=== PATIENT | male | born 1950 | race Caucasian/White ===

== ENCOUNTER 2016-11-28 12:48 | Emergency (ER) | payer MEDICARE ==
[2016-11-28 13:20] LABS: Band 1 % (5-11); Eosinophils 5 % (0-10); Hemoglobin 13.7 g/dL (14.0-18.0); Lymphocytes 13 % (21-51); MDiff Complete? YES; Mean Corpuscular HGB CONC 31.6 g/dL (32.0-36.0); Mean Corpuscular Volume 98.2 fl (80.0-94.0); Mean Platelet Volume 7.2 fL (7.4-10.4); Monocytes 9 % (0-10); Neutrophil 72 % (42-75); Platelet Count 212 thou/uL (130-400); RBC Distribution Width 14.8 % (11.5-14.5); Red Blood Cell (RBC) Count 4.43 mill/uL (4.70-6.10); White Blood Cell (WBC) Count 6.4 thou/uL (4.8-10.8)
[2016-11-28 13:21] LABS: INR-International Normal Ratio 1.1; PTT 24.9 SEC (22.9-36.1); Prothrombin Time 14.8 SEC (12.0-14.7)
[2016-11-28 13:29] LABS: Anion Gap 21 mmol/L (10-20); BUN (Urea Nitrogen) 65 mg/dL (8.4-25.7); Calc. Creatinine Clearance 0 mL/min (70-130); Calcium 9.2 mg/dL (7.8-10.44); Carbon Dioxide 18 mmol/L (23-31); Chloride 109 mmol/L (98-107); Estimated GFR-MDRD 9; Glucose 234 mg/dL (80-115); Sodium 142 mmol/L (136-145)
== END 2016-11-28 15:16 | disposition short-term general hospital (02) ==
LOC: BURERS 12:48
DX: I12.0 Hypertensive chronic kidney disease with stage 5 chronic kidney disease or end stage renal disease (principal); N18.6 End stage renal disease; E87.5 Hyperkalemia; E11.9 Type 2 diabetes mellitus without complications; Z99.2 Dependence on renal dialysis; Z95.0 Presence of cardiac pacemaker; Z79.82 Long term (current) use of aspirin; Z79.4 Long term (current) use of insulin; Z79.899 Other long term (current) drug therapy; Z79.01 Long term (current) use of anticoagulants
CPT/HCPCS: 36415; 80048; 85025; 85610; 85730; 93005

== ENCOUNTER 2016-12-12 09:11 | Outpatient (CLI) | payer MEDICARE ==
[2016-12-12 10:55] LABS: INR-International Normal Ratio 1.6; PTT 30.1 SEC (22.9-36.1); Prothrombin Time 19.3 SEC (12.0-14.7)
[2016-12-12 11:22] LABS: #Basophils 0.1 thou/uL (0.0-0.2); #Eosinphils 0.3 thou/uL (0.0-0.7); #Lymphocytes 0.9 thou/uL (1.20-3.40); #Monocytes 0.5 thou/uL (0.11-0.59); #Neutrophils 5.3 thou/uL (1.40-6.50); %Basophils 1.3 % (0.0-1.0); %Eosinophils 3.8 % (0.0-10.0); %Lymphocytes 12.5 % (21.0-51.0); %Monocytes 7.3 % (0.0-10.0); Hemoglobin 13.7 g/dL (14.0-18.0); Mean Corpuscular HGB CONC 31.9 g/dL (32.0-36.0); Mean Corpuscular Hemoglobin 31.2 pg (27.0-31.0); Mean Corpuscular Volume 97.9 fl (80.0-94.0); Mean Platelet Volume 6.8 fL (7.4-10.4); Platelet Count 174 thou/uL (130-400); RBC Distribution Width 15.6 % (11.5-14.5)
[2016-12-12 11:32] LABS: Hemoglobin A1c 7.8 % (4.0-6.0)
[2016-12-12 11:34] LABS: ALT (SGPT) 15 U/L (8-55); AST (SGOT) 11 U/L (5-34); Albumin 4.2 g/dL (3.4-4.8); Alkaline Phosphatase 72 U/L (40-150); Anion Gap 20 mmol/L (10-20); BUN (Urea Nitrogen) 61 mg/dL (8.4-25.7); Bilirubin, Total 0.8 mg/dL (0.2-1.2); Calc. Creatinine Clearance 0 mL/min (70-130); Calcium 8.7 mg/dL (7.8-10.44); Carbon Dioxide 23 mmol/L (23-31); Chloride 102 mmol/L (98-107); Estimated GFR-MDRD 8; Globulin 2.8 g/dL (2.4-3.5); Glucose 210 mg/dL (80-115); Potassium 5.1 mmol/L (3.5-5.1); Sodium 140 mmol/L (136-145)
== END 2016-12-12 09:12 ==
LOC: HPCALD 09:11
PROVIDERS: ATTEND Family Medicine
DX: E11.21 Type 2 diabetes mellitus with diabetic nephropathy (principal); I48.2 Chronic atrial fibrillation
CPT/HCPCS: 36415; 80053; 83036; 85025; 85610; 85730

== ENCOUNTER 2017-02-03 10:23 | Outpatient (CLI) | payer MEDICARE ==
[2017-02-03 11:39] LABS: Prothrombin Time 22.9 SEC (12.0-14.7)
[2017-02-03 12:01] LABS: ALT (SGPT) 18 U/L (8-55); AST (SGOT) 16 U/L (5-34); Albumin 4.2 g/dL (3.4-4.8); Alkaline Phosphatase 73 U/L (40-150); Bilirubin, Direct 0.4 mg/dL (0.1-0.3); Cardiac Risk 3.2 (Less than 4.5); Cholesterol 136 mg/dl (< 200 Desired); HDL Cholesterol 43 mg/dL (>60 Neg Risk); LDL Cholesterol, Calculated 79 mg/dL; Protein, Total 6.8 g/dL (5.8-8.1); Triglycerides 72 mg/dL (Less than 150)
== END 2017-02-03 10:24 | disposition home or self-care (01) ==
LOC: HPCALD 10:23
PROVIDERS: ATTEND Family Medicine
DX: E78.2 Mixed hyperlipidemia (principal); I48.2 Chronic atrial fibrillation
CPT/HCPCS: 36415; 80061; 80076; 85610

== ENCOUNTER 2017-02-14 09:23 | Emergency (ER) | payer MEDICARE ==
[2017-02-14 10:11] LABS: Anion Gap 18 mmol/L (10-20); BUN (Urea Nitrogen) 65 mg/dL (8.4-25.7); Calc. Creatinine Clearance 0 mL/min (70-130); Calcium 7.9 mg/dL (7.8-10.44); Carbon Dioxide 25 mmol/L (23-31); Chloride 103 mmol/L (98-107); Estimated GFR-MDRD 7; Glucose 215 mg/dL (80-115); Sodium 141 mmol/L (136-145)
== END 2017-02-14 10:30 | disposition home or self-care (01) ==
LOC: BURERS 09:23
DX: I12.9 Hypertensive chronic kidney disease with stage 1 through stage 4 chronic kidney disease, or unspecified chronic kidney disease (principal); N18.9 Chronic kidney disease, unspecified; E11.22 Type 2 diabetes mellitus with diabetic chronic kidney disease; Z79.84 Long term (current) use of oral hypoglycemic drugs; Z99.2 Dependence on renal dialysis; Z79.899 Other long term (current) drug therapy; Z79.82 Long term (current) use of aspirin
CPT/HCPCS: 80048; 99283

== ENCOUNTER 2017-02-16 03:44 | Emergency (ER) | payer MEDICARE ==
[2017-02-16] MEDS ORDERED: AMOXicillin 250 MG CAP ONE (04:03)
== END 2017-02-16 04:35 | disposition home or self-care (01) ==
LOC: BURERS 03:44
DX: K91.840 Postprocedural hemorrhage of a digestive system organ or structure following a digestive system procedure (principal); E11.9 Type 2 diabetes mellitus without complications; I10 Essential (primary) hypertension; Z79.82 Long term (current) use of aspirin; Z79.84 Long term (current) use of oral hypoglycemic drugs; Z79.899 Other long term (current) drug therapy
CPT/HCPCS: 99283

== ENCOUNTER 2017-04-22 04:45 | Emergency (ER) | payer MEDICARE | END 2017-04-22 05:28 | disposition home or self-care (01) | LOC: BURERS 04:45 | DX: S29.012A Strain of muscle and tendon of back wall of thorax, initial encounter (principal); E11.9 Type 2 diabetes mellitus without complications; I10 Essential (primary) hypertension; Z79.84 Long term (current) use of oral hypoglycemic drugs; Z79.82 Long term (current) use of aspirin; Z79.899 Other long term (current) drug therapy; X58.XXXA Exposure to other specified factors, initial encounter | CPT/HCPCS: 99283 ==

== ENCOUNTER 2017-05-02 16:49 | Emergency (ER) | payer MEDICARE ==
[2017-05-02] MEDS ORDERED: Diazepam 5 MG TAB ONE (17:04)
[2017-05-02] MEDS ORDERED: Ketorolac Tromethamine 60 MG/2 ML VIAL ONE (17:04)
== END 2017-05-02 17:34 | disposition home or self-care (01) ==
LOC: BURERS 16:49
DX: S29.012A Strain of muscle and tendon of back wall of thorax, initial encounter (principal); I25.2 Old myocardial infarction; I10 Essential (primary) hypertension; E11.9 Type 2 diabetes mellitus without complications; X58.XXXA Exposure to other specified factors, initial encounter
CPT/HCPCS: 96372; J1885

== ENCOUNTER 2017-12-19 13:41 | Emergency (ER) | payer MEDICARE ==
[2017-12-19 14:19] LABS: Clarity Cloudy (Clear)
[2017-12-19 14:20] LABS: Glucose, Urine (Dipstick) 100 mg/dL (Negative); Leukocyte Negative (Negative); Nitrite Negative (Negative); Protein, Urine (Dipstick) > or equal to 300 mg/dL (Neg-Trace); Specific Gravity, Urine 1.019 (1.002-1.036)
[2017-12-19 14:21] LABS: Bilirubin Moderate (Negative); Blood, Urine Trace (Negative)
[2017-12-19 14:26] LABS: Bacteria/HPF 1+ HPF (None Seen); Crystals/HPF 2+ AMORPH URATES HPF (Negative); Hyaline Casts/LPF NONE SEEN LPF (0-3 Hyaline); Other Casts/LPF None Seen LPF (0-3 Hyaline); Oval Fat Bodies/HPF None Seen HPF (None Seen); RBC/HPF 0-3 HPF (0-3); Renal Epithelial None Seen HPF (0-3); Sperm/HPF None Seen HPF (None Seen); Squamous Epithelial 0-3 HPF (0-3); Transitional Epithelial 0-3 HPF (0-3); Trichomonas/HPF None Seen HPF (None Seen); WBC/HPF 0-3 HPF (0-3); Yeast-All Forms None Seen HPF (None Seen)
[2017-12-19] MEDS ORDERED: Acetaminophen/Codeine 30-300mg Tablet ONE (15:12)
== END 2017-12-19 15:13 | disposition home or self-care (01) ==
LOC: BURERS 13:41
DX: M54.5 Low back pain (principal); E11.9 Type 2 diabetes mellitus without complications; I25.2 Old myocardial infarction; I12.9 Hypertensive chronic kidney disease with stage 1 through stage 4 chronic kidney disease, or unspecified chronic kidney disease; N18.9 Chronic kidney disease, unspecified; Z79.84 Long term (current) use of oral hypoglycemic drugs; Z79.82 Long term (current) use of aspirin; Z79.899 Other long term (current) drug therapy
CPT/HCPCS: 81003; 81015; 99283

== ENCOUNTER 2018-01-05 08:38 | Emergency (ER) | payer MEDICARE ==
[2018-01-05] MEDS ORDERED: Lidocaine 1% w/Epinephrine 1:100K 30 ML VIAL ONE (08:51)
== END 2018-01-05 09:25 | disposition home or self-care (01) ==
LOC: BURERS 08:38
DX: S51.811A Laceration without foreign body of right forearm, initial encounter (principal); E11.9 Type 2 diabetes mellitus without complications; I11.0 Hypertensive heart disease with heart failure; I50.9 Heart failure, unspecified; W22.8XXA Striking against or struck by other objects, initial encounter
CPT/HCPCS: 12001; J2001

== ENCOUNTER 2018-01-12 12:14 | Emergency (ER) | payer MEDICARE | END 2018-01-12 12:45 | disposition home or self-care (01) | LOC: BURERS 12:14 | DX: S41.111D Laceration without foreign body of right upper arm, subsequent encounter (principal); E11.9 Type 2 diabetes mellitus without complications; I11.0 Hypertensive heart disease with heart failure; I50.9 Heart failure, unspecified; I25.2 Old myocardial infarction; Z79.4 Long term (current) use of insulin ==

== ENCOUNTER 2018-03-21 09:54 | Emergency (ER) | payer MEDICARE ==
[2018-03-21] MEDS ORDERED: Acetaminophen/Codeine 30-300mg Tablet ONE (10:05)
[2018-03-21] MEDS ORDERED: Ketorolac Tromethamine 60 MG/2 ML VIAL ONE (10:05)
== END 2018-03-21 10:13 | disposition home or self-care (01) ==
LOC: BURERS 09:54
DX: S29.012A Strain of muscle and tendon of back wall of thorax, initial encounter (principal); E11.9 Type 2 diabetes mellitus without complications; I11.0 Hypertensive heart disease with heart failure; I50.9 Heart failure, unspecified; I25.2 Old myocardial infarction; X58.XXXA Exposure to other specified factors, initial encounter
CPT/HCPCS: 96372; J1885

== ENCOUNTER 2018-07-29 09:13 | Emergency (ER) | payer MEDICARE ==
[2018-07-29 09:47] LABS: #Basophils 0.1 thou/uL (0.0-0.2); #Eosinphils 0.1 thou/uL (0.0-0.7); #Lymphocytes 0.6 thou/uL (1.20-3.40); #Monocytes 1.2 thou/uL (0.11-0.59); #Neutrophils 6.5 thou/uL (1.40-6.50); %Basophils 0.9 % (0.0-1.0); %Eosinophils 1.2 % (0.0-10.0); %Lymphocytes 7.6 % (21.0-51.0); %Monocytes 13.6 % (0.0-10.0); %Neutrophils 76.6 % (42.0-75.0); Hemoglobin 14.5 g/dL (14.0-18.0); Mean Corpuscular HGB CONC 31.4 g/dL (32.0-36.0); Mean Corpuscular Hemoglobin 31.1 pg (27.0-31.0); Mean Corpuscular Volume 99.1 fL (78.0-98.0); Mean Platelet Volume 6.1 fL (7.4-10.4); Platelet Count 182 thou/uL (130-400); Red Blood Cell (RBC) Count 4.67 mill/uL (4.70-6.10); White Blood Cell (WBC) Count 8.4 thou/uL (4.8-10.8)
[2018-07-29 09:53] LABS: ALT (SGPT) 9 U/L (8-55); AST (SGOT) 13 U/L (5-34); Alkaline Phosphatase 85 U/L (40-150); Anion Gap 19 mmol/L (10-20); BUN (Urea Nitrogen) 44 mg/dL (8.4-25.7); Bilirubin, Total 1.2 mg/dL (0.2-1.2); Calc. Creatinine Clearance 0 mL/min (70-130); Calcium 9.4 mg/dL (7.8-10.44); Carbon Dioxide 26 mmol/L (23-31); Chloride 100 mmol/L (98-107); Estimated GFR-MDRD 9; Globulin 3.2 g/dL (2.4-3.5); Glucose 123 mg/dL (80-115); Potassium 4.7 mmol/L (3.5-5.1); Protein, Total 7.2 g/dL (5.8-8.1); Sodium 140 mmol/L (136-145)
[2018-07-29 10:15] LABS: CKMB 5.6 ng/mL (0-6.6)
[2018-07-29] MEDS ORDERED: Furosemide 40 MG/4 ML VIAL ONE (11:38)
[2018-07-29 12:41] LABS: Troponin I 0.443 ng/mL (< 0.028)
--- NOTE | 2018-07-29 13:24 | RAD ---
CHEST TWO VIEWS: Date: 07-29-18 Comparison: 05-09-15 FINDINGS: Cardiomegaly is about the same as before. There is no congestive change or pleural effusion at the mo ment. No focal pulmonary infiltrate was seen. An AICD is in place. IMPRESSION: Cardiomegaly but no acute findings. POS: HOME
[2018-07-29 16:07] LABS: Troponin I 0.351 ng/mL (< 0.028)
== END 2018-07-29 16:56 | disposition short-term general hospital (02) ==
LOC: BURERS 09:13
DX: J44.1 Chronic obstructive pulmonary disease with (acute) exacerbation (principal); I11.0 Hypertensive heart disease with heart failure; I50.9 Heart failure, unspecified; E11.9 Type 2 diabetes mellitus without complications; Z99.2 Dependence on renal dialysis; I25.2 Old myocardial infarction; Z79.4 Long term (current) use of insulin; Z79.899 Other long term (current) drug therapy; Z79.82 Long term (current) use of aspirin
CPT/HCPCS: 36415; 71046; 80053; 82553; 83880; 84484; 85025; 93005; 96374; J1940

== ENCOUNTER 2018-08-29 22:56 | Emergency (ER) | payer MEDICARE ==
[2018-08-29] MEDS ORDERED: Morphine 4 MG/ML VIAL ONE (23:33)
[2018-08-29 23:54] LABS: #Basophils 0.1 thou/uL (0.0-0.2); #Eosinphils 0.3 thou/uL (0.0-0.7); #Lymphocytes 0.7 thou/uL (1.20-3.40); #Monocytes 0.7 thou/uL (0.11-0.59); #Neutrophils 4.2 thou/uL (1.40-6.50); %Basophils 1.6 % (0.0-1.0); %Eosinophils 4.8 % (0.0-10.0); %Lymphocytes 11.6 % (21.0-51.0); %Monocytes 10.9 % (0.0-10.0); %Neutrophils 71.1 % (42.0-75.0); Hemoglobin 13.8 g/dL (14.0-18.0); Mean Corpuscular HGB CONC 31.5 g/dL (32.0-36.0); Mean Corpuscular Hemoglobin 31.3 pg (27.0-31.0); Mean Corpuscular Volume 99.4 fL (78.0-98.0); Mean Platelet Volume 7.6 fL (7.4-10.4); Platelet Count 167 thou/uL (130-400); RBC Distribution Width 14.2 % (11.5-14.5); Red Blood Cell (RBC) Count 4.42 mill/uL (4.70-6.10); White Blood Cell (WBC) Count 5.9 thou/uL (4.8-10.8)
[2018-08-30 00:02] LABS: ALT (SGPT) 13 U/L (8-55); AST (SGOT) 13 U/L (5-34); Albumin 4.1 g/dL (3.4-4.8); Alkaline Phosphatase 105 U/L (40-150); Anion Gap 21 mmol/L (10-20); BUN (Urea Nitrogen) 98 mg/dL (8.4-25.7); Bilirubin, Total 0.6 mg/dL (0.2-1.2); Calc. Creatinine Clearance 0 mL/min (70-130); Calcium 8.5 mg/dL (7.8-10.44); Carbon Dioxide 19 mmol/L (23-31); Chloride 104 mmol/L (98-107); Estimated GFR-MDRD 5; Globulin 2.7 g/dL (2.4-3.5); Glucose 195 mg/dL (80-115); Potassium 5.4 mmol/L (3.5-5.1); Protein, Total 6.8 g/dL (5.8-8.1); Sodium 139 mmol/L (136-145)
--- NOTE | 2018-08-30 08:27 | CT ---
PRELIMINARY REPORT/[facility]/EMERGENTY AFTER-HOURS PROCEDURE CT Abdomen and Pelvis With Contrast EXAM DATE/TIME: 08/29/2018 11:36 PM CLINICAL HISTORY: 67 years old, male; Pain; Abdominal pain; Generalized; Patient HX: Rlq pain PT on dialisis for renal failure TECHNIQUE: Axial computed tomography images of the abdomen and pelvis with intravenous contrast. All CT scans at this facility use at least one of these dose optimization techniques: automated expos ure control; mA and/or kV adjustment per patient size (includes targeted exams where dose is matched to clinical indication); or iterative reconstruction. CONTRAST: Contrast Material: 95 ml of ISOVIEW; Contrast Route: LF HAND 20 GA COMPARISON: No relevant prior studies available. FINDINGS: Lower thorax: Invisible cardiomegaly. Cardiac device in place. ABDOMEN: Liver: Normal. No mass. Gallbladder and bile ducts: Pericholecystic inflammation compatible with cholecystitis. Pancreas: Normal. No ductal dilation. Spleen: Normal. No splenomegaly. Adrenals: Normal. No mass. Kidneys and ureters: Hypoattenuating 2.3 cm cystic left renal lesion does not meet strict CT criteria for a cyst and is indeterminate, potentially a hyperdense cyst. Mild right-sided hydroureteronephros is without obstructing urolithiasis. Nonobstructive nephrolithiasis right kidney. Stomach and bowel: No bowel wall thickening or intestinal obstruction. Appendix: No evidence of appendicitis. PELVIS: Bladder: Inflammatory thickening of the wall of the urinary bladder consistent with cystitis. Reproductive: Unremarkable as visualized. ABDOMEN and PELVIS: Intraperitoneal space: Trace ascites. Bones/joints: No acute fracture. No dislocation. Soft tissues: Unremarkable. Vasculature: Normal. No abdominal aortic aneurysm. Lymph nodes: Normal. No enlarged lymph nodes. IMPRESSION: 1. Cystitis. 2. Pericholecystic inflammation compatible with cholecystitis. 3. Mild right-sided hydroureteronephrosis without obstructing urolithiasis. 4. Trace ascites. Thank you for allowing us to participate in the care of your patient. Dictated and Authenticated by: Eduin Santillan MD 08/30/2018 12:04 AM Central Time ([place] & [place]) FINAL REPORT CT ABDOMEN AND PELVIS WITH CONTRAST: DATE: 08/29/2018. FINDINGS: I am told that the patient has known renal failure but is on dialysis, thus contrast was used. Axial slices were acquired followed by coronal and sagittal reconstructions. Comparison is made with a study. Lung bases show dependent atelectasis and perhaps a little scarring. There are no large effusions. The liver, spleen, and pancreas showed no acute findings. The gallbladder wall may be slightly thick ened. This would be best assessed by ultrasound no gross stones were identified. The adrenal glands and aorta were unremarkable. Mild to moderate right hydronephrosis is present. There are some avery l calcifications that appear to be nonobstructing stones in this kidney. No ureteral calculi were ap preciated. There is a rounded exophytic mass attached to the lower pole of the left kidney that mayito ures about 2.5 cm in size. Central density is generally in the 30s so it does not meet the criteria of a simple cyst, though it could be a hemorrhagic cyst. It was not present on the 2011 scan. Ultra sound would be confirmatory. The bowel shows no distention or inflammatory change around it. There is no substantial amount of fr ee fluid in the abdomen. A few areas one might wonder about a trace of fluid but certainly in no sig nificant amounts. No free air is seen. CT of the pelvis shows no pelvic masses or free fluid. The bladder wall seems thick which could sign zhane cystitis, but knowing the patient has renal failure, it also could be due to its being chronicall y collapsed. Incidentally noted is a smooth ovoid soft tissue mass in the right paraspinal region at approximately L1. It was present on the 2011 scan but has increased in size slightly over the interval. Today it measures about 11 x 6.5 x 4 cm. It is smooth and homogeneous. IMPRESSION: 1. Possible gallbladder wall thickening. Consider followup ultrasound. 2. Right hydronephrosis and hydroureter. Nonobstructing stones in the right kidney. 3. Small exophytic mass attached to the lower pole of the left kidney. Does not meet criteria for a simple cyst but could be a hemorrhagic cyst. Not present in 2011. 4. Thickening of the urinary bladder wall which I suspect is chronic in this patient. Report in agreement with preliminary reading by [email or web address]. POS: HOME
== END 2018-08-30 00:32 | disposition short-term general hospital (02) ==
LOC: BURERS 22:56
DX: K81.0 Acute cholecystitis (principal); E11.9 Type 2 diabetes mellitus without complications; I11.0 Hypertensive heart disease with heart failure; I50.9 Heart failure, unspecified; J44.9 Chronic obstructive pulmonary disease, unspecified; E78.00 Pure hypercholesterolemia, unspecified; Z79.899 Other long term (current) drug therapy; Z79.4 Long term (current) use of insulin; Z79.82 Long term (current) use of aspirin
CPT/HCPCS: 74177; 80053; 83605; 83690; 85025; 96374; J2270

== ENCOUNTER 2018-12-09 15:00 | Emergency (ER) | payer MEDICARE | END 2018-12-09 15:57 | disposition home or self-care (01) | LOC: BURERS 15:00 | DX: T82.838A Hemorrhage due to vascular prosthetic devices, implants and grafts, initial encounter (principal); E11.9 Type 2 diabetes mellitus without complications; Z79.4 Long term (current) use of insulin; I11.0 Hypertensive heart disease with heart failure; I50.9 Heart failure, unspecified; I25.2 Old myocardial infarction; E78.00 Pure hypercholesterolemia, unspecified; J44.9 Chronic obstructive pulmonary disease, unspecified; Z79.899 Other long term (current) drug therapy; Z79.01 Long term (current) use of anticoagulants; Z79.82 Long term (current) use of aspirin | CPT/HCPCS: 99283 ==

== ENCOUNTER 2019-01-06 11:38 | Emergency (ER) | payer MEDICARE ==
[2019-01-06] MEDS ORDERED: Ondansetron PF 4 MG/2 ML Vial ONE (12:10)
[2019-01-06 12:21] LABS: #Eosinphils 0.2 thou/uL (0.0-0.7); #Lymphocytes 0.7 thou/uL (1.20-3.40); #Monocytes 0.6 thou/uL (0.11-0.59); #Neutrophils 4.1 thou/uL (1.40-6.50); %Basophils 0.9 % (0.0-1.0); %Eosinophils 4.2 % (0.0-10.0); %Lymphocytes 11.5 % (21.0-51.0); %Monocytes 11.4 % (0.0-10.0); %Neutrophils 72.1 % (42.0-75.0); Hemoglobin 14.4 g/dL (14.0-18.0); Mean Corpuscular HGB CONC 30.1 g/dL (32.0-36.0); Mean Corpuscular Hemoglobin 30.8 pg (27.0-31.0); Mean Platelet Volume 5.4 fL (7.4-10.4); Platelet Count 184 thou/uL (130-400); RBC Distribution Width 15.3 % (11.5-14.5); White Blood Cell (WBC) Count 5.6 thou/uL (4.8-10.8)
[2019-01-06 12:28] LABS: Prothrombin Time 46.3 SEC (12.0-14.7)
[2019-01-06 12:29] LABS: INR-International Normal Ratio 5.1
[2019-01-06 12:33] LABS: ALT (SGPT) 15 U/L (8-55); AST (SGOT) 18 U/L (5-34); Albumin 4.4 g/dL (3.4-4.8); Alkaline Phosphatase 85 U/L (40-150); Anion Gap 19 mmol/L (10-20); BUN (Urea Nitrogen) 39 mg/dL (8.4-25.7); Bilirubin, Total 0.7 mg/dL (0.2-1.2); Calc. Creatinine Clearance 0 mL/min (70-130); Calcium 8.9 mg/dL (7.8-10.44); Carbon Dioxide 25 mmol/L (23-31); Chloride 102 mmol/L (98-107); Estimated GFR-MDRD 8; Glucose 84 mg/dL (80-115); Potassium 5.1 mmol/L (3.5-5.1); Protein, Total 7.4 g/dL (5.8-8.1); Sodium 141 mmol/L (136-145)
--- NOTE | 2019-01-06 12:43 | CT ---
CT ABDOMEN AND PELVIS WITHOUT CONTRAST: Date: 01/06/[address] of the abdomen and pelvis was done following trauma. The patient presents with lower abdomi nal pain. Axial slices were acquired, followed by coronal reconstructions. FINDINGS: The lung bases are clear, except for some minor dependent atelectasis. The heart is enlarged. AICD is in place. Dense coronary artery calcifications are evident. The liver, spleen, pancreas, adrenal glands, and aorta show no acute findings within the limitations of a noncontrast study. No suspicion of laceration or hematoma of any major organ. The gallbladder is slightly generous in size, but still within normal limits at a 8.5 cm in length. No stones or wall t hickening could be seen. The kidneys are small and atrophic, as expected given the history of chronic renal disease. No renal masses or cysts apparent. The bowel shows no distention, wall thickening, or other acute change. No free air or free fluid evid ent in the abdomen. The muscles of the abdominal wall show no evidence of hematoma. CT of the pelvis showed no pelvic masses, fluid collections, or inflammatory changes. The bony pelvis appears intact. Some degenerative changes are noted throughout the lumbar spine. IMPRESSION: No acute intra-abdominal findings. POS: HOME
[2019-01-06 12:52] LABS: CKMB 4.9 ng/mL (0-6.6)
[2019-01-06 13:47] LABS: Troponin I 0.139 ng/mL (< 0.028)
== END 2019-01-06 14:08 | disposition home or self-care (01) ==
LOC: BURERS 11:38
DX: S30.1XXA Contusion of abdominal wall, initial encounter (principal); E11.9 Type 2 diabetes mellitus without complications; I11.0 Hypertensive heart disease with heart failure; I50.9 Heart failure, unspecified; I25.2 Old myocardial infarction; J44.9 Chronic obstructive pulmonary disease, unspecified; E78.00 Pure hypercholesterolemia, unspecified; Z79.82 Long term (current) use of aspirin; Z79.4 Long term (current) use of insulin; Z79.899 Other long term (current) drug therapy; W19.XXXA Unspecified fall, initial encounter
CPT/HCPCS: 74176; 80053; 82553; 84484; 85025; 85610; 93005; 94760; 96374; J2405

== ENCOUNTER 2019-01-23 22:58 | Emergency (ER) | payer MEDICARE ==
[2019-01-23] MEDS ORDERED: Acetaminophen/Codeine 30-300mg Tablet ONE (23:17)
[2019-01-23] MEDS ORDERED: Ketorolac Tromethamine 30 MG/ML VIAL ONE (23:17)
[2019-01-23 23:21] LABS: Clarity Cloudy (Clear)
[2019-01-23 23:22] LABS: Bilirubin Small (Negative); Blood, Urine Moderate (Negative); Glucose, Urine (Dipstick) Negative (Negative); Leukocyte Small (Negative); Nitrite Negative (Negative); Protein, Urine (Dipstick) > or equal to 300 mg/dL (Neg-Trace); Urobilinogen 0.2 mg/dL (Less than 2)
[2019-01-23 23:31] LABS: Bacteria/HPF Rare-Few HPF (None Seen); Squamous Epithelial 0-3 HPF (0-3)
== END 2019-01-23 23:27 | disposition home or self-care (01) ==
LOC: BURERS 22:58
DX: S29.012A Strain of muscle and tendon of back wall of thorax, initial encounter (principal); I13.2 Hypertensive heart and chronic kidney disease with heart failure and with stage 5 chronic kidney disease, or end stage renal disease; I50.9 Heart failure, unspecified; N18.6 End stage renal disease; E11.22 Type 2 diabetes mellitus with diabetic chronic kidney disease; I25.2 Old myocardial infarction; J44.9 Chronic obstructive pulmonary disease, unspecified; E78.00 Pure hypercholesterolemia, unspecified; Z99.2 Dependence on renal dialysis; Z79.4 Long term (current) use of insulin; X58.XXXA Exposure to other specified factors, initial encounter; Z79.01 Long term (current) use of anticoagulants; Z79.82 Long term (current) use of aspirin; Z79.899 Other long term (current) drug therapy
CPT/HCPCS: 81003; 81015; 87086; 96372; 99283; J1885

== ENCOUNTER 2019-02-05 08:41 | Emergency (ER) | payer MEDICARE ==
[2019-02-05] MEDS ORDERED: Ondansetron PF 4 MG/2 ML Vial ONE (09:18)
[2019-02-05 09:33] LABS: INR-International Normal Ratio 2.9; PTT 48.3 SEC (22.9-36.1); Prothrombin Time 31.3 SEC (12.0-14.7)
[2019-02-05 09:34] LABS: ALT (SGPT) 18 U/L (8-55); AST (SGOT) 24 U/L (5-34); Albumin 4.1 g/dL (3.4-4.8); Alkaline Phosphatase 92 U/L (40-150); Anion Gap 17 mmol/L (10-20); BUN (Urea Nitrogen) 31 mg/dL (8.4-25.7); Calc. Creatinine Clearance 0 mL/min (70-130); Calcium 9.1 mg/dL (7.8-10.44); Carbon Dioxide 28 mmol/L (23-31); Chloride 97 mmol/L (98-107); Estimated GFR-MDRD 9; Globulin 3.2 g/dL (2.4-3.5); Glucose 103 mg/dL (80-115); Lipase 40 U/L (8-78); Potassium 4.2 mmol/L (3.5-5.1); Protein, Total 7.3 g/dL (5.8-8.1); Sodium 138 mmol/L (136-145)
[2019-02-05 09:39] LABS: Hemoglobin 14.4 g/dL (14.0-18.0); Mean Corpuscular HGB CONC 30.6 g/dL (32.0-36.0); Mean Corpuscular Hemoglobin 30.4 pg (27.0-31.0); Mean Corpuscular Volume 99.5 fL (78.0-98.0); RBC Distribution Width 14.5 % (11.5-14.5); Red Blood Cell (RBC) Count 4.74 mill/uL (4.70-6.10); White Blood Cell (WBC) Count 6.2 thou/uL (4.8-10.8)
[2019-02-05 09:40] LABS: #Basophils 0.1 thou/uL (0.0-0.2); #Eosinphils 0.1 thou/uL (0.0-0.7); #Monocytes 0.8 thou/uL (0.11-0.59); #Neutrophils 4.8 thou/uL (1.40-6.50); %Basophils 1.5 % (0.0-1.0); %Eosinophils 0.8 % (0.0-10.0); %Lymphocytes 7.6 % (21.0-51.0); %Monocytes 12.8 % (0.0-10.0); %Neutrophils 77.3 % (42.0-75.0); MDiff Complete? YES; Manual Diff?? NO; Mean Platelet Volume 6.4 fL (7.4-10.4); Platelet Count 174 thou/uL (130-400)
[2019-02-05] MEDS ORDERED: Piperacillin/Tazobactam 4.5 GM VIAL ONE (09:46)
[2019-02-05] MEDS ORDERED: Sodium Chloride 0.9% 0 ML ONE (09:46)
[2019-02-05 09:49] LABS: Bilirubin Small (Negative); Blood, Urine Large (Negative); Glucose, Urine (Dipstick) 100 mg/dL (Negative); Leukocyte Trace (Negative); Nitrite Negative (Negative); Protein, Urine (Dipstick) > or equal to 300 mg/dL (Neg-Trace)
[2019-02-05 09:50] LABS: CKMB 2.7 ng/mL (0-6.6)
[2019-02-05 09:57] LABS: Bacteria/HPF 1+ HPF (None Seen); Clarity Cloudy (Clear); RBC/HPF Greater than 50 HPF (0-3)
--- NOTE | 2019-02-05 10:37 | CT ---
CT ABDOMEN AND PELVIS WITHOUT CONTRAST: Date: 02/05/19 Comparison is made with the prior study of 01/06/19. FINDINGS: The lung bases are clear except for some dependent atelectasis. The main pulmonary artery is quite la rge, measuring 5.2 cm in diameter. There is dense calcification of the coronary arteries, particularl y in the left coronary system. The heart is enlarged, but no pericardial effusion is seen. The liver, spleen, pancreas, adrenal glands, and abdominal aorta show no acute findings. The gallblad dez is about the same size as it was on the 01/06/19 study. The verma do not seem unduly thick to me and I do not see any stones or streaking around the gallbladder. Ultrasound might give a better look of it if symptoms localize there. The kidneys are quite small. I understand that the patient is on dialysis. There is at least one smal l cyst in the left kidney. I see no hydronephrosis. A few calcifications are present in the right kid laquita. The bowel shows no distention or wall thickening. A few scattered diverticula are present without sig ns of diverticulitis. No free air or free fluid seen. CT of the pelvis shows no pelvic masses, fluid collections, or inflammatory changes. The bladder is d ecompressed so cannot be evaluated. An incidental finding is a large ovoid mass in the right paraspinal soft tissues posteriorly. This santoro s been present on numerous prior scans and has not changed. IMPRESSION: 1. No acute abdominal or pelvic findings. 2. Very large main pulmonary artery. 3. Dense coronary arteriosclerosis. 4. Ovoid smooth soft tissue mass in the back on the paraspinous region on the right, longstanding an d unchanged. POS: HOME
--- NOTE | 2019-02-05 10:49 | RAD ---
PORTABLE CHEST: Date: 02/05/19 An AP portable film at 0909 hours is compared with a 09/10/18 study done at [facility]. The heart is quite large, as usual. Nevertheless, there are no congestive findings or pleural effusio ns of concern. Cardiac pacer is in place. I cannot appreciate a focal pneumonia. Recent CT showed josefina e basilar streaking, more so on the right than the left, but it really had the appearance of either f ibrosis or dependent atelectasis. IMPRESSION: Cardiomegaly, but no acute findings. POS: HOME
[2019-02-05] MEDS ORDERED: Iopamidol 370 76% 100 ML VIAL ONE (11:07)
== END 2019-02-05 10:52 | disposition short-term general hospital (02) ==
LOC: BURERS 08:41
DX: R10.84 Generalized abdominal pain (principal); R07.9 Chest pain, unspecified; R79.89 Other specified abnormal findings of blood chemistry; R50.9 Fever, unspecified; I13.2 Hypertensive heart and chronic kidney disease with heart failure and with stage 5 chronic kidney disease, or end stage renal disease; E11.22 Type 2 diabetes mellitus with diabetic chronic kidney disease; N18.6 End stage renal disease; I50.9 Heart failure, unspecified; J44.9 Chronic obstructive pulmonary disease, unspecified; E78.00 Pure hypercholesterolemia, unspecified; Z79.82 Long term (current) use of aspirin; Z79.899 Other long term (current) drug therapy; Z79.4 Long term (current) use of insulin; Z79.01 Long term (current) use of anticoagulants
CPT/HCPCS: 36415; 36416; 51701; 71045; 74177; 80053; 81003; 81015; 82553; 83605; 83690; 84484; 85025; 85610; 85730; 87040; 87077; 87149; 87186; 93005; 94760; 96365; 96375; J2405; J2543; J3490; Q9967

== ENCOUNTER 2019-06-23 17:08 | Emergency (ER) | payer MEDICARE ==
[2019-06-23 17:53] LABS: PTT 71.3 SEC (22.9-36.1)
[2019-06-23 17:57] LABS: Prothrombin Time 70.8 SEC (12.0-14.7)
[2019-06-23 17:59] LABS: INR-International Normal Ratio 8.7
[2019-06-23 18:31] LABS: Bilirubin Large (Negative); Blood, Urine Large (Negative); Clarity Turbid (Clear); Leukocyte Large (Negative); Nitrite Negative (Negative)
[2019-06-23 18:33] LABS: Glucose, Urine (Dipstick) Unable to Interpret mg/dL (Negative); Protein, Urine (Dipstick) Unable to Interpret mg/dL (Neg-Trace)
[2019-06-23 18:40] LABS: Bacteria/HPF 2+ HPF (None Seen); RBC/HPF Greater than 50 HPF (0-3); Squamous Epithelial 0-3 HPF (0-3); WBC/HPF 0-3 HPF (0-3)
== END 2019-06-23 18:33 | disposition home or self-care (01) ==
LOC: BURERS 17:08
DX: R31.0 Gross hematuria (principal); R79.89 Other specified abnormal findings of blood chemistry; I11.0 Hypertensive heart disease with heart failure; I50.9 Heart failure, unspecified; E11.9 Type 2 diabetes mellitus without complications; E78.00 Pure hypercholesterolemia, unspecified; I25.2 Old myocardial infarction; J44.9 Chronic obstructive pulmonary disease, unspecified; Z79.899 Other long term (current) drug therapy; Z79.01 Long term (current) use of anticoagulants; Z79.82 Long term (current) use of aspirin
CPT/HCPCS: 36415; 81003; 81015; 85610; 85730; 99283

== ENCOUNTER 2019-12-11 15:03 | Emergency (ER) | payer MEDICARE ==
[2019-12-11] MEDS ORDERED: Morphine 4 MG/ML VIAL ONE (15:19)
[2019-12-11] MEDS ORDERED: Cyclobenzaprine 10 MG TAB ONE (15:20)
== END 2019-12-11 15:23 | disposition home or self-care (01) ==
LOC: BURERS 15:03
DX: S29.012A Strain of muscle and tendon of back wall of thorax, initial encounter (principal); I13.0 Hypertensive heart and chronic kidney disease with heart failure and stage 1 through stage 4 chronic kidney disease, or unspecified chronic kidney disease; N18.9 Chronic kidney disease, unspecified; I50.9 Heart failure, unspecified; E11.22 Type 2 diabetes mellitus with diabetic chronic kidney disease; I25.2 Old myocardial infarction; J44.9 Chronic obstructive pulmonary disease, unspecified; E78.00 Pure hypercholesterolemia, unspecified; Z79.899 Other long term (current) drug therapy; Z79.4 Long term (current) use of insulin; Z99.2 Dependence on renal dialysis; Z79.82 Long term (current) use of aspirin; Z79.01 Long term (current) use of anticoagulants; X50.0XXA Overexertion from strenuous movement or load, initial encounter
CPT/HCPCS: 96372; 99283; J2270

== ENCOUNTER 2020-04-21 09:12 | Emergency (ER) | payer MEDICARE ==
[2020-04-21 09:39] LABS: #Basophils 0.1 thou/uL (0.0-0.2); #Eosinphils 2.3 thou/uL (0.0-0.7); #Lymphocytes 1.3 thou/uL (1.20-3.40); #Neutrophils 5.3 thou/uL (1.40-6.50); %Basophils 1.4 % (0.0-1.0); %Lymphocytes 12.7 % (21.0-51.0); %Neutrophils 52.9 % (42.0-75.0); Hemoglobin 13.4 g/dL (14.0-18.0); Mean Corpuscular HGB CONC 30.2 g/dL (32.0-36.0); Mean Corpuscular Hemoglobin 30.6 pg (27.0-31.0); Mean Platelet Volume 6.1 fL (7.4-10.4); Platelet Count 217 thou/uL (130-400); RBC Distribution Width 13.7 % (11.5-14.5); Red Blood Cell (RBC) Count 4.38 mill/uL (4.70-6.10)
[2020-04-21 09:56] LABS: ALT (SGPT) 27 U/L (8-55); AST (SGOT) 27 U/L (5-34); Alkaline Phosphatase 98 U/L (40-110); Anion Gap 20 mmol/L (10-20); BUN (Urea Nitrogen) 39 mg/dL (8.4-25.7); Bilirubin, Total 0.6 mg/dL (0.2-1.2); CK (CPK) 116 U/L (30-200); Calc. Creatinine Clearance 0 mL/min (70-130); Calcium 8.6 mg/dL (7.8-10.44); Carbon Dioxide 26 mmol/L (23-31); Chloride 95 mmol/L (98-107); Estimated GFR-MDRD 8; Globulin 3.4 g/dL (2.4-3.5); Glucose 272 mg/dL (80-115); Lipase 39 U/L (8-78); Potassium 4.2 mmol/L (3.5-5.1); Protein, Total 7.4 g/dL (5.8-8.1); Sodium 137 mmol/L (136-145)
[2020-04-21] MEDS ORDERED: Aspirin Chewable 81 MG TAB ONE (10:06)
[2020-04-21 10:14] LABS: CKMB 3.2 ng/mL (0-6.6)
--- NOTE | 2020-04-21 10:34 | RAD ---
PORTABLE CHEST: DATE: 04/21/2020. FINDINGS: An AP portable film at 0942 is compared with a 02/02/2020 study. Cardiomegaly is about the same as before. There is no congestive change today or pleural effusion. The lungs are clear. The cardiac pacer remains in place. IMPRESSION: Cardiomegaly, but no acute findings. POS: HOME
[2020-04-21] MEDS ORDERED: Iopamidol 370 76% 100 ML VIAL ONE (12:00)
--- NOTE | 2020-04-22 07:41 | CT ---
CT ANGIO OF THE CHEST WITH CONTRAST: DATE: 04/21/2020. FINDINGS: Spiral CT of the chest was done after a bolus of IV contrast. Reconstructions and MIP images were ob tained afterwards. There is excellent opacification of the pulmonary arterial system. There are no filling defects to s uggest emboli. There is some mild increase I the size of the main pulmonary artery, being about 5 cm wide. There could be an element of pulmonary arterial hypertension. There is no sign of aortic dis section or aneurysm. Extensive calcification is noted in coronary arteries, especially the LAD. The amount seems rather significant. No pericardial effusion was seen. The lungs are clear, except for some basilar atelectasis. No lobar infiltrates or effusions were seen. Scans into the upper abdomen showed no acute findings in the visualized areas. IMPRESSION: 1. No evidence of pulmonary embolism. 2. Significant coronary artery disease, particularly in the left anterior descending artery. Findings discussed with Dr. Farmer at 1031 on 04/21/2020. CODE CR POS: HOME
== END 2020-04-21 10:43 | disposition short-term general hospital (02) ==
LOC: BURERS 09:12
DX: R07.9 Chest pain, unspecified (principal); E11.9 Type 2 diabetes mellitus without complications; J44.9 Chronic obstructive pulmonary disease, unspecified; I11.0 Hypertensive heart disease with heart failure; I50.9 Heart failure, unspecified; E78.00 Pure hypercholesterolemia, unspecified; I25.2 Old myocardial infarction; Z79.899 Other long term (current) drug therapy; Z79.01 Long term (current) use of anticoagulants; Z79.82 Long term (current) use of aspirin; Z79.4 Long term (current) use of insulin
CPT/HCPCS: 36415; 71045; 71275; 80053; 82550; 82553; 83690; 83880; 84484; 85025; 93005; Q9967

== ENCOUNTER 2020-12-08 15:58 | Emergency (ER) | payer MEDICARE ==
[2020-12-08] MEDS ORDERED: Acetaminophen/Codeine 30-300mg Tablet ONE (16:21)
[2020-12-08] MEDS ORDERED: Ketorolac Tromethamine 60 MG/2 ML VIAL ONE (16:21)
== END 2020-12-08 16:34 | disposition home or self-care (01) ==
LOC: BURERS 15:58
DX: S29.012A Strain of muscle and tendon of back wall of thorax, initial encounter (principal); M62.830 Muscle spasm of back
CPT/HCPCS: 96372; 99283; J1885

== ENCOUNTER 2020-12-20 18:20 | Emergency (ER) | payer MEDICARE ==
[2020-12-20 19:14] LABS: #Basophils 0.1 thou/uL (0.0-0.2); #Eosinphils 0.2 thou/uL (0.0-0.7); #Lymphocytes 0.7 thou/uL (1.20-3.40); #Monocytes 0.8 thou/uL (0.11-0.59); #Neutrophils 4.3 thou/uL (1.40-6.50); %Basophils 1.9 % (0.0-1.0); %Eosinophils 3.7 % (0.0-10.0); %Lymphocytes 10.8 % (21.0-51.0); %Neutrophils 70.6 % (42.0-75.0); Hemoglobin 13.3 g/dL (14.0-18.0); Mean Corpuscular HGB CONC 32.2 g/dL (32.0-36.0); Mean Corpuscular Volume 96.4 fL (78.0-98.0); Mean Platelet Volume 7.4 fL (7.4-10.4); Platelet Count 275 thou/uL (130-400); RBC Distribution Width 15.1 % (11.5-14.5); Red Blood Cell (RBC) Count 4.28 mill/uL (4.70-6.10); White Blood Cell (WBC) Count 6.1 thou/uL (4.8-10.8)
[2020-12-20 19:31] LABS: ALT (SGPT) 69 U/L (8-55); AST (SGOT) 69 U/L (5-34); Albumin 3.8 g/dL (3.4-4.8); Alkaline Phosphatase 107 U/L (40-110); Anion Gap 19 mmol/L (10-20); BUN (Urea Nitrogen) 18 mg/dL (8.4-25.7); Bilirubin, Total 1.1 mg/dL (0.2-1.2); Calc. Creatinine Clearance 0 mL/min (70-130); Calcium 9.2 mg/dL (7.8-10.44); Carbon Dioxide 28 mmol/L (23-31); Chloride 98 mmol/L (98-107); Globulin 3.2 g/dL (2.4-3.5); Glucose 220 mg/dL (80-115); Potassium 3.8 mmol/L (3.5-5.1); Sodium 141 mmol/L (136-145)
[2020-12-20 19:57] LABS: CKMB 6.8 ng/mL (0-6.6)
[2020-12-20] MEDS ORDERED: Aspirin Chewable 81 MG TAB ONE (19:57)
[2020-12-20 20:03] LABS: INR-International Normal Ratio 3.9; Prothrombin Time 39.1 sec (12.0-14.7)
== END 2020-12-20 21:56 | disposition other institution, planned readmission (95) ==
LOC: BURERS 18:20
DX: I21.4 Non-ST elevation (NSTEMI) myocardial infarction (principal); I11.0 Hypertensive heart disease with heart failure; I50.9 Heart failure, unspecified; E11.9 Type 2 diabetes mellitus without complications; I25.2 Old myocardial infarction; E78.00 Pure hypercholesterolemia, unspecified; J44.9 Chronic obstructive pulmonary disease, unspecified; Z79.899 Other long term (current) drug therapy; Z79.82 Long term (current) use of aspirin; Z79.01 Long term (current) use of anticoagulants
CPT/HCPCS: 71045; 80053; 82553; 83880; 84484; 85025; 85379; 85610; 93005

== ENCOUNTER 2021-02-09 12:17 | Emergency (ER) | payer MEDICARE ==
[2021-02-09] MEDS ORDERED: Ondansetron PF 4 MG/2 ML Vial ONE (13:02)
[2021-02-09 13:26] LABS: Hemoglobin 12.4 g/dL (14.0-18.0); Mean Corpuscular HGB CONC 32.9 g/dL (32.0-36.0); Mean Corpuscular Hemoglobin 31.4 pg (27.0-31.0); Mean Corpuscular Volume 95.6 fL (78.0-98.0); Mean Platelet Volume 5.9 fL (7.4-10.4); Platelet Count 251 thou/uL (130-400); RBC Distribution Width 14.9 % (11.5-14.5); Red Blood Cell (RBC) Count 3.94 mill/uL (4.70-6.10); White Blood Cell (WBC) Count 7.3 thou/uL (4.8-10.8)
[2021-02-09 13:37] LABS: ALT (SGPT) 99 U/L (8-55); AST (SGOT) 110 U/L (5-34); Albumin 3.7 g/dL (3.4-4.8); Alkaline Phosphatase 125 U/L (40-110); Anion Gap 19 mmol/L (10-20); BUN (Urea Nitrogen) 37 mg/dL (8.4-25.7); Calc. Creatinine Clearance 0 mL/min (70-130); Carbon Dioxide 27 mmol/L (23-31); Chloride 97 mmol/L (98-107); Globulin 3.2 g/dL (2.4-3.5); Glucose 175 mg/dL (80-115); Potassium 4.2 mmol/L (3.5-5.1); Protein, Total 6.9 g/dL (5.8-8.1); Sodium 139 mmol/L (136-145)
[2021-02-09 13:59] LABS: Band 3 % (5-11); Lymphocytes 10 % (21-51); MDiff Complete? YES; Monocytes 8 % (0-10); Neutrophil 77 % (42-75); Reactive Lymphocytes 2 % (0-10)
[2021-02-09 15:01] LABS: Base Excess-Venous 0.9 mmol/L (-2.0 to 3.0); Bicarbonate (HCO3v) 28.3 mmol/L (22.0-28.0); CO2 Tension (PvCO2) 56.8 mmHg (42.0-51.0); Calcium, Ionized 1.12 mmol/L (1.15-1.33); Chloride 98 mmol/L (98-107); Hemoglobin - Calc 12.2 g/dL (14.0-18.0); Potassium 4.2 mmol/L (3.5-5.1); Sodium 137 mmol/L (138-145); vO2 Saturation-calc 99.2 % (60.0-85.0)
[2021-02-09 15:13] LABS: INR-International Normal Ratio 1.3; Prothrombin Time 16.5 sec (12.0-14.7)
[2021-02-09] MEDS ORDERED: Aspirin Chewable 81 MG TAB ONE (15:15)
[2021-02-09 15:33] LABS: CKMB 32.5 ng/mL (0-6.6)
[2021-02-09] MEDS ORDERED: Enoxaparin Sodium 100 MG/ML SYRINGE ONE (15:49)
[2021-02-09 16:33] LABS: SARS-CoV-2 NAA Rapid Test DETECTED (NotDetected)
== END 2021-02-09 16:09 | disposition short-term general hospital (02) ==
LOC: BURERS 12:17
DX: U07.1 COVID-19 (principal); I21.4 Non-ST elevation (NSTEMI) myocardial infarction; I13.0 Hypertensive heart and chronic kidney disease with heart failure and stage 1 through stage 4 chronic kidney disease, or unspecified chronic kidney disease; I50.9 Heart failure, unspecified; E11.22 Type 2 diabetes mellitus with diabetic chronic kidney disease; N18.9 Chronic kidney disease, unspecified; Z99.2 Dependence on renal dialysis; J44.9 Chronic obstructive pulmonary disease, unspecified; E78.00 Pure hypercholesterolemia, unspecified; Z79.01 Long term (current) use of anticoagulants; Z79.899 Other long term (current) drug therapy
CPT/HCPCS: 71045; 80053; 82330; 82435; 82553; 82803; 83880; 84132; 84295; 84484 ×2; 85014; 85025; 85610; 93005; U0002; 36415; 96372; 96374; J1650; J2405